=== PATIENT | male | born 1980 | race Caucasian/White ===

== ENCOUNTER 2025-01-08 07:32 | Outpatient (CLI) | payer BC, SELFPAY | END 2025-01-08 07:33 | disposition home or self-care (01) | LOC: NFLDREF 01-11 02:30 | PROVIDERS: PCP Internal Medicine; Referring Provider Internal Medicine; Visit Provider Internal Medicine | DX: R00.2 Palpitations (principal); Z13.220 Encounter for screening for lipoid disorders | CPT/HCPCS: 80053; 80061 ==